=== PATIENT | female | born 1985 | race American Indian/Alaskan Native ===

== ENCOUNTER 2019-07-11 01:09 | Emergency (ER) | payer OTHER ==
--- NOTE | 2019-07-11 01:53 | XRay Report ---
CHEST 1 VIEW INDICATION: Chest Pain. COMPARISON: None FINDINGS: Support devices: None. Heart: Within normal limits. Lungs/Pleura: No acute air space or interstitial disease. Additional findings: None. IMPRESSION: 1. No acute findings. Signer Name: Tello Cosby MD Signed: 07/11/2019 1:49 AM Workstation Name: [id number]
[2019-07-11] MEDS ORDERED: ACETAMINOPHEN 325 MG TAB PO ONE ×2 (01:59→10:10)
[2019-07-11] MEDS ORDERED: ACETAMINOPHEN 325 MG TAB ONE (02:00)
[2019-07-11 02:56] LABS: Hemoglobin 14.4 gm/dl (10.1-14.3); Mean Corpuscular HGB Conc 34 % (30-34); Mean Corpuscular Volume 86 fl (79-97); Red Blood Count 4.99 M/mm3 (3.65-5.03)
[2019-07-11 02:57] LABS: Basophils % (Auto) 0.3 % (0.0-1.8); Eosinophils # (Auto) 0.1 K/mm3 (0.0-0.4); Eosinophils % (Auto) 1.6 % (0.0-4.3); Lymphocytes # (Auto) 0.4 K/mm3 (1.2-5.4); Lymphocytes % (Auto) 6.6 % (13.4-35.0); Monocytes # (Auto) 0.4 K/mm3 (0.0-0.8); Monocytes % (Auto) 6.6 % (0.0-7.3); Platelet Count 242 K/mm3 (140-440); Red Cell Distribution Width 13.2 % (13.2-15.2)
[2019-07-11 03:19] LABS: BUN/Creatinine Ratio 15; Blood Urea Nitrogen 9 mg/dL (7-17); Calcium 9.2 mg/dL (8.4-10.2); Hemolysis Index 7
[2019-07-11 03:31] LABS: Free T4 (Free Thyroxine) 0.93 ng/dL (0.76-1.46); HCG,Quantitative < 2 mIU/mL (0-4)
--- NOTE | 2019-07-11 09:30 | Event Note ---
ED Screening Note ED Screening Note: pt comes to er with cp and palpitations she has had these in the past and at one time was on bystolic she states "it was stopped because my MD told me it can make my heart rate fast." she denies thyroid disease. pain is described as sharp at times but when hr goes up it is "full" endorses sob and anxiety when hr up lmp 03/24- on depo pmh asthma kidney disease htn rx norvasc psh uterine PCP Beka This initial assessment/diagnostic orders/clinical plan/treatment(s) is/are subject to change based on patients health status, clinical progression and re- assessment by fellow clinical providers in the ED. Further treatment and workup at subsequent clinical providers discretion. Patient/guardian urged not to elope from the ED as their condition may be serious if not clinically assessed and managed. Initial orders include: serial trop neg tsh n serial EKG with ST chest xray noted CTA ordered monitored bed.
[2019-07-11] MEDS ORDERED: SODIUM CHLORIDE 0.9% 1000 ML 1,000 ML IV ONE ×2 (09:32→10:08)
[2019-07-11] MEDS ORDERED: MAGNESIUM SULFATE 2 GM/50 ML BAG IV ONE (09:32)
[2019-07-11] MEDS ORDERED: POTASSIUM CHLORIDE ER 20 MEQ TAB PO ONE (09:32)
[2019-07-11] MEDS ORDERED: KETOROLAC 30 MG/1 ML INJ IV ONE (10:08)
[2019-07-11] MEDS ORDERED: diphenhydrAMINE 50 MG/ML VIAL IV ONE (10:08)
[2019-07-11] MEDS ORDERED: METOCLOPRAMIDE 10 MG/2 ML INJ IV ONE (10:09)
[2019-07-11] MEDS ORDERED: MIDAZOLAM 2 MG/2 ML INJ IV ONE (10:09)
[2019-07-11] MEDS ORDERED: LIDOCAINE (4%) 40 MG/ML TOPICAL SOLN 50 ML BOTTLE TP ONE (10:09)
--- NOTE | 2019-07-11 10:22 | Emergency Department Report ---
ED Chest Pain HPI - General Chief Complaint: Arrhythmia/Palpitations Stated Complaint: RAPID HEARTBEAT CHEST PAIN SOB NIGHT SWEATS Time Seen by Provider: 07/11/19 09:33 Source: patient, RN notes reviewed Mode of arrival: Ambulatory Limitations: No Limitations - History of Present Illness Initial Comments: This is a 34-year-old female. This patient does not known to this provider previously. She reports that she is not , and reports she has not delivered o r given within the past 6 weeks. the patient does not have a local watch parts inspector, but does have a local primary care doctor, CHRISTIANO Steele, at [facility]. She takes Depo-Provera for control, and also reports that she has hypertension, and takes Norvasc. She also takes albuterol. She previously had issues with uncontrolled tachycardia, and was switched from by systolic, to Norvasc. She presents to the ER with 2 complaints. Her first complaint is chest wall pain. This started at 7:00 PM last night. It is throbbing and aching, constant, does not radiate anywhere. There is no vomiting or diaphoresis. She describes intermittent shortness of breath. There is no leg pain or leg swelling. No recent travel or surgeries. She reports intermittent issues with tachycardia in the past, and reports that she typically monitors her heart rate at home, and recently found it to be in the 120/140s. The patient also reports a secondary complaint of headache which started yesterday morning.. The headache is frontal and bitemporal. The headache is not sudden or thunderclap in nature. The headache did not reached maximal intensity within an hour. There is no neck pain or neck stiffness. The headache is not the worst headache of her life. There is no focal extremity weakness or numbness. There is no ataxia. MD Complaint: chest pain, other -: Gradual, hour(s) Onset: during rest Pain Location: other (anterior chest wall) Pain Radiation: none Severity: mild, moderate Severity scale (0 -10): 6 Quality: tightness, aching Consistency: constant Improves With: rest Worsens With: palpation Aspirin use within the Past 7 Days: (0) No - Related Data On Oral Contraceptives: Yes Home Medications Medication Instructions Recorded Confirmed Last Taken Promethazine [Phenergan TAB] 25 mg PO Q6HR PRN 05/15/18 07/11/19 07/11/19 25 mg Allergies Allergy/AdvReac Type Severity Reaction Status Date / Time pseudoephedrine Allergy Anaphylaxis Verified 04/25/18 11:48 [From [facility]] Heart Score - HEART Score History: Slightly suspicious EKG: Non-specific Age: < 45 Risk factors: 1-2 risk factors Troponin: < normal limit HEART Score: 2 - Critical Actions Critical Actions: 0-3 pts:0.9-1.7%risk of adverse cardiac event.Candidate for discharge ED Review of Systems ROS: Stated complaint: RAPID HEARTBEAT CHEST PAIN SOB NIGHT SWEATS Other details as noted in HPI Constitutional: denies: fever Eyes: denies: eye discharge ENT: denies: congestion Respiratory: shortness of breath Cardiovascular: chest pain, palpitations Gastrointestinal: denies: nausea, vomiting Genitourinary: denies: dysuria Musculoskeletal: myalgia Skin: denies: lesions Neurological: headache Psychiatric: anxiety ED Past Medical Hx - Past Medical History Previous Medical History?: Yes Hx Hypertension: Yes (X 2 YRS) Hx Headaches / Migraines: Yes (MIGRAINES) Hx Kidney Stones: Yes Hx Asthma: Yes (SEASONAL , INHALER PRN) Hx Tuberculosis: No (POSITIVE SKIN TEST , NO TX , NEG CXR 2004) Hx HIV: No - Surgical History Past Surgical History?: Yes Additional Surgical History: lithotripsy, wisdom teeth removed. - Social History Smoking Status: Never Smoker - Medications Home Medications: Home Medications Medication Instructions Recorded Confirmed Last Taken Type Promethazine [Phenergan TAB] 25 mg PO Q6HR PRN 05/15/18 07/11/19 07/11/19 History 25 mg ED Physical Exam - General Limitations: No Limitations General appearance: alert, in no apparent distress - Head Head exam: Present: atraumatic, normocephalic - Eye Eye exam: Present: normal appearance, PERRL, EOMI, other (visual acuity intact to finger counting and color perception at a close distance). Absent: nystagmus - ENT ENT exam: Present: normal exam, normal orophraynx, mucous membranes moist, normal external ear exam - Neck Neck exam: Present: normal inspection, full ROM. Absent: tenderness, meningismus - Respiratory Respiratory exam: Present: normal lung sounds bilaterally, chest wall tenderness, other (there is no redness, pus or streaking. Breast exam unremarkable. Chaperoned by Jami Hoover). Absent: respiratory distress, wheezes, rales, rhonchi, stridor - Cardiovascular Cardiovascular Exam: Present: normal rhythm, tachycardia, normal heart sounds. Absent: systolic murmur, diastolic murmur, rubs, gallop - GI/Abdominal GI/Abdominal exam: Present: soft. Absent: distended, tenderness, guarding, rebound, rigid, pulsatile mass - Extremities Exam Extremities exam: Present: normal inspection, full ROM, other (2+ pulses noted in the bilateral upper and lower extremities. There is no long bony tenderness. There is no palpable cord. The muscular compartments are soft. The pelvis is stable.). Absent: pedal edema, calf tenderness - Back Exam Back exam: Present: normal inspection, full ROM. Absent: tenderness, CVA tenderness (R), CVA tenderness (L), paraspinal tenderness, vertebral tenderness - Neurological Exam Neurological exam: Present: alert, other (there is no facial droop. The tongue is midline. The extraocular movements are intact bilaterally. Hearing is intact. Phonation is within normal limits. Speech is fluid and luccid. There is 5 out of 5 strength in 4 extremities. Sensation is intact to light touch in 4 extremities. There is no past-pointing. There is no pronator drift. There is normal [id number]. There is a normal gait.). Absent: motor sensory deficit - Psychiatric Psychiatric exam: Present: anxious - Skin Skin exam: Present: warm, dry, intact, normal color. Absent: rash ED Course Vital Signs 07/11/19 07/11/19 07/11/19 01:26 02:32 05:36 Temperature 99.4 F 99.1 F Pulse Rate 140 H 123 H 109 H Respiratory 18 18 16 Rate Blood Pressure 140/98 136/79 Blood Pressure [Right] O2 Sat by Pulse 99 98 98 Oximetry 07/11/19 07/11/19 07/11/19 09:16 11:08 11:19 Temperature Pulse Rate 120 H 133 H Respiratory 24 24 Rate Blood Pressure Blood Pressure 125/91 [Right] O2 Sat by Pulse 100 Oximetry 07/11/19 07/11/19 11:48 12:31 Temperature Pulse Rate 109 H Respiratory 20 20 Rate Blood Pressure Blood Pressure 133/101 [Right] O2 Sat by Pulse 98 Oximetry - Reevaluation(s) Reevaluation #1: 07/11/19 10:24 Differential diagnosis, including not limited to: Costochondritis, pneumonia, GERD, gastritis, hiatal hernia, pneumonia, acute coronary syndrome, pulmonary embolism, migraine headache, tension headache, cluster headache Assessment and plan: 34-year-old female with 2 complaints Complaints #1, chest pain, palpitations and shortness of breath. Chest wall pain reproducible. EKG unchanged 2, fairly unremarkable, troponin negative 3, low risk by well's criteria, not hypoxic, not tachypneic, d-dimer negative, low pre-and posttest mobility for pulmonary embolism at this point in time. Patient endorses intermittent chronic tachycardia. Her tachycardia is variable. We will treat her symptoms. Patient at low risk for major adverse cardiac event as per heart score. Assuming tachycardia Resolved with Appropriate Medical Therapy, I Think a Pulmonary Embolism Is Quite Unlikely. Patient Velasco itable to Follow up with an Outpatient Dental Billing Specialist to Complete Her Cardiac Risk Stratification. Complaints #2 headache: Patient gets frequent headaches. She has a GCS of 15. Her neurologic examination is nonfocal. Her headache history does not include red flag signs or symptoms for intracranial hemorrhage, meningitis, or significant structural pathology. Her neurologic examination is unremarkable and within normal limits. We will treat her headache supportively and symptomatically. Reevaluation #2: 07/11/19 12:01 patient persistently tachycardic in spite of aggressive medical therapy therefore will need ct angio to exclude PE, alternative causes of pathology Reevaluation #3: 07/11/19 14:20 Patient resting comfortably and in no acute distress. CT scan chest negative for acute disease. Heart rate has decreased to 105, 106 bpm. EKG unchanged 3. Patient suitable to follow up with outpatient cardiology for further evaluat ion. She has had an extended stay in the emergency room, without identification of a potentially emergent condition that would require further hospitalization at this time. WOOD score - Wood Score Age > 65: (0) No Aspirin use within the Past 7 Days: (0) No 3 or more CAD Risk Factors: (0) No 2 or more Angina events in past 24 hrs: (0) No Known CAD with more than 50% Stenosis: (0) No Elevated Cardiac Markers: (0) No ST Deviation Greater than 0.5mm: (0) No WOOD Score: 0 ED Medical Decision Making - Lab Data Result diagrams: 07/11/19 02:22 07/11/19 02:22 Vital Signs 07/11/19 07/11/19 07/11/19 01:26 02:32 05:36 Temperature 99.4 F 99.1 F Pulse Rate 140 H 123 H 109 H Respiratory 18 18 16 Rate Blood Pressure 140/98 136/79 O2 Sat by Pulse 99 98 98 Oximetry 07/11/19 09:16 Temperature Pulse Rate 120 H Respiratory Rate Blood Pressure O2 Sat by Pulse Oximetry Lab Results 07/11/19 07/11/19 07/11/19 Range/Units 02:22 02:22 02:22 WBC 5.7 (4.5-11.0) K/mm3 RBC 4.99 (3.65-5.03) M/mm3 Hgb 14.4 H (10.1-14.3) gm/dl Hct 43.0 H (30.3-42.9) % MCV 86 (79-97) fl MCH 29 (28-32) pg MCHC 34 (30-34) % RDW 13.2 (13.2-15.2) % Plt Count 242 (140-440) K/mm3 Lymph % (Auto) 6.6 L (13.4-35.0) % Griggs % (Auto) 6.6 (0.0-7.3) % Eos % (Auto) 1.6 (0.0-4.3) % Baso % (Auto) 0.3 (0.0-1.8) % Lymph # 0.4 L (1.2-5.4) K/mm3 Griggs # 0.4 (0.0-0.8) K/mm3 Eos # 0.1 (0.0-0.4) K/mm3 Baso # 0.0 (0.0-0.1) K/mm3 Seg Neutrophils % 84.9 H (40.0-70.0) % Seg Neutrophils # 4.8 (1.8-7.7) K/mm3 PT 13.3 (12.2-14.9) Sec. INR 1.00 (0.87-1.13) D-Dimer (0-234) ng/mlDDU Sodium 138 (137-145) mmol/L Potassium 3.5 L (3.6-5.0) mmol/L Chloride 101.1 (98-107) mmol/L Carbon Dioxide 24 (22-30) mmol/L Anion Gap 16 mmol/L BUN 9 (7-17) mg/dL Creatinine 0.6 L (0.7-1.2) mg/dL Estimated GFR > 60 ml/min BUN/Creatinine Ratio 15 % Glucose 102 H (65-100) mg/dL Calcium 9.2 (8.4-10.2) mg/dL Troponin T < 0.010 (0.00-0.029) ng/mL TSH (0.270-4.200) mlU/mL Free T4 (0.76-1.46) ng/dL HCG, Quant (0-4) mIU/mL 07/11/19 07/11/19 07/11/19 Range/Units 02:22 04:58 08:29 WBC (4.5-11.0) K/mm3 RBC (3.65-5.03) M/mm3 Hgb (10.1-14.3) gm/dl Hct (30.3-42.9) % MCV (79-97) fl MCH (28-32) pg MCHC (30-34) % RDW (13.2-15.2) % Plt Count (140-440) K/mm3 Lymph % (Auto) (13.4-35.0) % Griggs % (Auto) (0.0-7.3) % Eos % (Auto) (0.0-4.3) % Baso % (Auto) (0.0-1.8) % Lymph # (1.2-5.4) K/mm3 Griggs # (0.0-0.8) K/mm3 Eos # (0.0-0.4) K/mm3 Baso # (0.0-0.1) K/mm3 Seg Neutrophils % (40.0-70.0) % Seg Neutrophils # (1.8-7.7) K/mm3 PT (12.2-14.9) Sec. INR (0.87-1.13) D-Dimer (0-234) ng/mlDDU Sodium (137-145) mmol/L Potassium (3.6-5.0) mmol/L Chloride (98-107) mmol/L Carbon Dioxide (22-30) mmol/L Anion Gap mmol/L BUN (7-17) mg/dL Creatinine (0.7-1.2) mg/dL Estimated GFR ml/min BUN/Creatinine Ratio % Glucose (65-100) mg/dL Calcium (8.4-10.2) mg/dL Troponin T < 0.010 < 0.010 (0.00-0.029) ng/mL TSH 0.843 (0.270-4.200) mlU/mL Free T4 0.93 (0.76-1.46) ng/dL HCG, Quant < 2 (0-4) mIU/mL 07/11/19 Range/Units 10:09 WBC (4.5-11.0) K/mm3 RBC (3.65-5.03) M/mm3 Hgb (10.1-14.3) gm/dl Hct (30.3-42.9) % MCV (79-97) fl MCH (28-32) pg MCHC (30-34) % RDW (13.2-15.2) % Plt Count (140-440) K/mm3 Lymph % (Auto) (13.4-35.0) % Griggs % (Auto) (0.0-7.3) % Eos % (Auto) (0.0-4.3) % Baso % (Auto) (0.0-1.8) % Lymph # (1.2-5.4) K/mm3 Griggs # (0.0-0.8) K/mm3 Eos # (0.0-0.4) K/mm3 Baso # (0.0-0.1) K/mm3 Seg Neutrophils % (40.0-70.0) % Seg Neutrophils # (1.8-7.7) K/mm3 PT (12.2-14.9) Sec. INR (0.87-1.13) D-Dimer < 135 (0-234) ng/mlDDU Sodium (137-145) mmol/L Potassium (3.6-5.0) mmol/L Chloride (98-107) mmol/L Carbon Dioxide (22-30) mmol/L Anion Gap mmol/L BUN (7-17) mg/dL Creatinine (0.7-1.2) mg/dL Estimated GFR ml/min BUN/Creatinine Ratio % Glucose (65-100) mg/dL Calcium (8.4-10.2) mg/dL Troponin T (0.00-0.029) ng/mL TSH (0.270-4.200) mlU/mL Free T4 (0.76-1.46) ng/dL HCG, Quant (0-4) mIU/mL - EKG Data -: EKG Interpreted by Me EKG shows normal: sinus rhythm Rate: tachycardia - EKG Data When compared to previous EKG there are: previous EKG unavailable 07/11/19 10:26 EKG #1 shows a sinus tachycardia, with a normal axis, QTC is 422 ms, there is borderline high left ventricular voltage, there is atrial enlargement and motion artifact. This is not consistent with ST elevation myocardial infarction. EKG #2 appears to be unchanged from prior, rate 112 bpm. - Radiology Data Radiology results: report reviewed, image reviewed X-ray the chest is negative for acute disease Critical care attestation.: If time is entered above; I have spent that time in minutes in the direct care of this critically ill patient, excluding procedure time. ED Disposition Clinical Impression: Tachycardia, Chest wall pain Disposition: DC-01 TO HOME OR SELFCARE Is pt being admited?: No Does the pt Need Aspirin: No Condition: Stable Additional Instructions: Recommend that patient drink plenty of fluids. Avoid consumption of stimulants, and caffeinated beverages. Do not take metformin medication for the next 2 days, if patient takes this medication. Patient may take [id number] Tylenol, 650 mg by mouth, every 4-6 hours, alternating with ibuprofen, 600 mg by mouth, with food, every 6 hours. Recommend the patient avoid consumption of heavy and/or spicy foods. Please follow up with a watch parts inspector within the next 3-5 days. Patient may contact any of the local listed cardiology practices to obtain an expedited outpatient follow-up. Please return to the emergency room right away with new, worsening or different symptoms, or symptoms not present on initial emergency room evaluation. P articipate in physical activities as tolerated, and avoid strenuous heavy lifting. Referrals: ABIMAEL JONES MD [Primary Care Provider] - 3-5 Days [facility] [Provider Group] - 3-5 Days
[2019-07-11] MEDS ORDERED: MIDAZOLAM 5 MG/5 ML INJ MDV IV NR (10:30)
[2019-07-11] MEDS ORDERED: LORazepam 2 MG/ML VIAL IV STA (11:35)
--- NOTE | 2019-07-11 13:39 | Cat Scan Report ---
CTA CHEST WITH IV CONTRAST INDICATION: persistent tachycardia cp sob. TECHNIQUE: Axial CT images were obtained through the chest after injection of IV contrast. 3 plane MIP reconstru ctions were produced. All CT scans at this location are performed using CT dose reduction for ALARA b y means of automated exposure control. COMPARISON: None available. FINDINGS: Pulmonary Arteries: No pulmonary emboli. Thoracic Aorta: No acute abnormality. Heart: Normal. Lungs: No acute air space or interstitial disease. Pleura: No pleural effusion. No pneumothorax. Lymph Nodes: No significant adenopathy. Additional Findings: None. Upper Abdomen: No acute findings. Skeletal Structures: No significant osseous abnormality. IMPRESSION: 1. No CT evidence for pulmonary embolism. 2. No acute findings. Signer Name: Adam Rios MD Signed: 07/11/2019 1:34 PM Workstation Name: [id number]
[2019-07-11 16:06] VITALS: BP 132/94
== END 2019-07-11 15:45 | disposition home or self-care (01) ==
LOC: ED 01:09
DX: R07.89 Other chest pain (principal); R00.0 Tachycardia, unspecified; I10 Essential (primary) hypertension; G43.909 Migraine, unspecified, not intractable, without status migrainosus; J45.909 Unspecified asthma, uncomplicated; Z98.890 Other specified postprocedural states; Z88.6 Allergy status to analgesic agent
CPT/HCPCS: 36415; 71045; 71275; 80048; 82550; 83735; 84439; 84443; 84484; 84702; 85025; 85379; 85610; 93005; 93010; 96365; 96375; 99285; J1200; J1885; J2060; J2250; J2765; J3475; J7030; Q9967